=== PATIENT | male | born 1965 | race Caucasian/White ===

== ENCOUNTER 2017-04-19 05:21 | Emergency (ER) | payer OTHER ==
[~2017-04-19] VITALS: Ht 182.9 cm; Wt 94.6 kg
[2017-04-19 06:02] LABS: MCH 29.3 PG (29.0-34.0); MCHC 34.2 G/DL (30.0-36.0); MCV 85.6 FL (86-99); PLATELET COUNT 246 K/uL (156-360); RBC DIS.WIDTH-CV 13.2 % (11.8-14.6); RBC DIS.WIDTH-SD 41.4 % (39-53); RED BLOOD COUNT 4.44 M/uL (4.00-5.50); WHITE BLOOD COUNT 7.1 K/uL (4.1-10.2)
[2017-04-19 06:06] LABS: INTER. NORMALIZED RATIO 0.9
[2017-04-19 06:09] LABS: D-DIMER ELISA < 150.00 ng/mLDDU (<230); PTT 29.2 SEC (25-37)
[2017-04-19 06:13] LABS: ALBUMIN 4.4 g/dL (3.2-4.8); CHLORIDE 108 mEq/L (99-109); POTASSIUM 3.8 mEq/L (3.7-5.4); SODIUM 140 mEq/L (136-147)
[2017-04-19 06:16] LABS: GLUCOSE 122 mg/dL (70-99)
[2017-04-19 06:17] LABS: TOTAL BILIRUBIN 0.2 mg/dL (0.0-1.0)
[2017-04-19 06:19] LABS: ALKALINE PHOSPHATASE 86 IU/L (3-129); CREATININE 0.8 mg/dL (0.6-1.3); GFR ESTIMATE (CALCULATED) > 59 mL/min/ (58.99-99999)
[2017-04-19 06:20] LABS: UREA NITROGEN (BUN) 16 mg/dL (9-23)
[2017-04-19 06:21] LABS: AST (GOT) 26 IU/L (2-34); TROP-I INTERPRETATION NEGATIVE; TROPONIN-I 0.02 ng/mL (0.0-0.30)
[2017-04-19 06:22] LABS: ALT (GPT) 36 IU/L (3-49)
[2017-04-19 06:23] LABS: LIPASE 29 U/L (1.0-51.0)
[2017-04-19] MEDS ORDERED: PEPCID20 MG PO (06:56)
[2017-04-19 07:27] VITALS: BP 135/87
== END 2017-04-19 07:27 | disposition left against medical advice (07) ==
LOC: EME → EDBD 05:21 → EME 05:21
PROVIDERS: Emergency Medicine
DX: R07.89 Other chest pain (principal); E78.5 Hyperlipidemia, unspecified
CPT/HCPCS: 71046; 80053; 83690; 84484; 85027; 85379; 85610; 85730; 93005; 99281; 99285; S0028